=== PATIENT | female | born 1950 | race Caucasian/White ===

== ENCOUNTER 2019-01-04 23:14 | Inpatient (IN) | payer MEDICARE ==
[~2019-01-04] VITALS: Ht 170.2 cm; Wt 80.5 kg
[2019-01-04] MEDS ORDERED: normal saline 1000ML IV soln IVB ONE (23:35)
[2019-01-04] MEDS ORDERED: morphine 4 MG/ML inj SYRINge IV PRN (23:35)
[2019-01-04] MEDS ORDERED: ondansetron/PF 4mg/2ml inj IV ONE (23:35)
[2019-01-04 23:48] LABS: URINE HCG NEGATIVE (NEG)
[2019-01-04 23:50] LABS: CLARITY,URINE CLOUDY (Clear); COLOR,URINE YELLOW (Yellow); GLUCOSE, URINE NEGATIVE (Neg); KETONES,URINE TRACE mg/dl (Neg); LEUKOCYTE ESTERASE ,URINE TRACE (Neg); NITRITES, URINE NEGATIVE (Neg); OCCULT BLOOD,URINE LARGE (Neg); PH,URINE 7.5 (4.8-8.0); PROTEIN,URINE 100 mg/dl (Neg)
[2019-01-05] VITALS (9 sets, daily range): BP systolic 110–180; BP diastolic 67–100
[2019-01-05] LABS: BASOPHILS # (AUTO) 0.1 X10'3 (0-0.2); BASOPHILS % (AUTO) 0.4 % (0-1); EOSINOPHILS # (AUTO) 0.1 X10'3 (0-0.9); EOSINOPHILS % (AUTO) 0.6 % (0-6); HEMATOCRIT 43.3 % (35.0-45.0); HEMOGLOBIN 14.3 g/dl (12.0-16.0); LYMPHOCYTES # (AUTO) 1.6 X10'3 (1.1-4.8); LYMPHOCYTES % (AUTO) 11.4 % (21-51); MEAN CORPUSCULAR HEMOGLOBIN 30.4 PG (27.0-31.0); MEAN CORPUSCULAR HGB CONC 33.1 g/dL (33.0-36.5); MEAN CORPUSCULAR VOLUME 91.9 FL (78-98); MEAN PLATELET VOLUME 8.4 FL (7.4-10.4); MONOCYTES # (AUTO) 0.7 X10'3 (0-0.9); MONOCYTES % (AUTO) 5.3 % (2-12); NEUTROPHILS # (AUTO) 11.2 X10'3 (1.8-7.7); NEUTROPHILS % (AUTO) 82.3 % (42-75); PLATELET COUNT 290 X10'3 (140-440); RED BLOOD COUNT 4.71 X10'6 (4.20-5.60); RED CELL DISTRIBUTION WIDTH 13.2 % (11.5-14.5); WHITE BLOOD COUNT 13.6 X10'3 (4.5-11.0)
[2019-01-05 00:03] LABS: UA COLLECTION TYPE CLN CATCH MIDSTREAM
[2019-01-05 00:04] LABS: BACTERIA,URINE FEW /HPF (Neg); RBC,URINE 50-100 /HPF (0-2); SQUAMOUS EPITHELIAL CELL,UR FEW /LPF (FEW)
[2019-01-05 00:08] LABS: ALANINE AMINOTRANSFERASE 31 U/L (12-78); ALBUMIN 4.1 G/DL (3.4-5.0); ALBUMIN/GLOBULIN RATIO 1.1 (1.1-1.5); ALKALINE PHOSPHATASE 112 IU/L (46-116); ANION GAP 11 (8-16); ASPARTATE AMINO TRANSFERASE 22 U/L (10-37); BILIRUBIN,TOTAL 0.3 MG/DL (0.1-1.0); BLOOD UREA NITROGEN 30 MG/DL (7-18); BUN/CREATININE RATIO 21.9 (6.6-38.0); CALCIUM 10.2 MG/DL (8.5-10.1); CHLORIDE 104 MMOL/L (99-107); CREATININE 1.37 MG/DL (0.40-0.90); GLUCOSE 169 MG/DL (70-104); LIPASE 142 U/L (73-393); POTASSIUM 3.8 MMOL/L (3.5-5.1); SODIUM 139 MMOL/L (135-145); TOTAL CARBON DIOXIDE 23.7 MMOL/L (24-32); TOTAL PROTEIN 7.7 G/DL (6.4-8.2); eGFR 38 ML/MIN
[2019-01-05] MEDS ORDERED: CefTRIAXone 2gm/D5W 50ml 50 ML IV ONE (00:40)
[2019-01-05] MEDS ORDERED: ATOR40TA PO (01:03)
[2019-01-05] MEDS ORDERED: HYDROcodone/acetaminophen 10/325mg tab PO PRN (01:15)
[2019-01-05] MEDS ORDERED: magnesium hydroxide 30ml (MOM) UD suspension PO PRN (01:15)
[2019-01-05] MEDS ORDERED: mag hydrox/Alum hydrox/simeth 30ml oral suspension PO PRN (01:15)
[2019-01-05] MEDS ORDERED: ondansetron/PF 4mg/2ml inj IV PRN ×2 (01:15→08:40)
[2019-01-05] MEDS ORDERED: morphine 2 MG/ML inj. syringe IV PRN ×2 (01:15)
[2019-01-05] MEDS ORDERED: HYDROcodone/acetaminophen 5mg/325mg tablet PO PRN (01:15)
[2019-01-05] MEDS ORDERED: acetaminophen 325mg tablet PO PRN ×2 (01:15)
[2019-01-05] MEDS ORDERED: tamsulosin 0.4mg capsule PO SCH (01:20)
[2019-01-05] MEDS: normal saline 1000ml 1,000 ML IV SCH ×2 (01:25→11:15)
--- NOTE | 2019-01-05 06:30 | NUR ---
Problems reprioritized. Patient report given, questions answered & plan of care reviewed with Yane HAYDEN.
[2019-01-05] MEDS ORDERED: CefTRIAXone/D5W-Rocephin 1gm 50 ML IV SCH (08:00)
[2019-01-05] MEDS ORDERED: HYDROmorphone 2mg/ml vial IV PRN (08:05)
[2019-01-05] MEDS ORDERED: HYDROmorphone 1 mg/ml syringe IV PRN ×2 (08:16→08:20)
[2019-01-05] MEDS ORDERED: ringers solution, lacted 1,000 ML IV SCH (08:37)
[2019-01-05] MEDS ORDERED: labetalol 20mg/4ml (5mg/ml) syringe IV PRN (08:40)
[2019-01-05] MEDS ORDERED: morphine 4 MG/ML inj SYRINge IV PRN ×2 (08:40)
[2019-01-05] MEDS ORDERED: hydrALAZINE 20mg/ml inj. IV PRN (08:40)
[2019-01-05] MEDS ORDERED: fentaNYL/PF 50MCG/1 ML 2ML syringe IV PRN ×2 (08:40)
[2019-01-05] MEDS ORDERED: iohexol 300 MG/1 ML 50ml polymer ONE (08:51)
[2019-01-05] MEDS ORDERED: fentaNYL/PF 50MCG/1 ML 2ML syringe ONE (09:09)
[2019-01-05] MEDS ORDERED: dexamethasone sod phosphate 4mg/ml inj. ONE (09:09)
[2019-01-05] MEDS ORDERED: midazolam 2 mg/2 ml injection ONE (09:09)
[2019-01-05] MEDS ORDERED: propofol inj 20 ML IV ONE (09:10)
[2019-01-05] MEDS ORDERED: ondansetron/PF 4mg/2ml inj ONE (09:10)
[2019-01-05] MEDS ORDERED: LIDOcaine 1%/PF 5ML 10 MG/ML VIAL ONE (09:10)
--- NOTE | 2019-01-05 10:08 | NUR ---
PT RECEIVED IN PACU VIA BED WITH O2 ON AND DR Ford IN ATTENDANCE. REPORT RECEIVED. VS STABLE. PT SLEEPY BUT AROUSABLE, NO C/O PAIN
--- NOTE | 2019-01-05 10:38 | NUR ---
DR CORTEZ IN TO SPEAK WITH PT. V STABLE. NO PAIN
--- NOTE | 2019-01-05 10:58 | NUR ---
TO FLOOR. MARSHALL IN ROOM TO ACCEPT PT AND RECEIVE REPORT. PT COMFORTABLE AND AWAKE
[2019-01-05] MEDS ORDERED: ACET-2119 PO (13:49)
[2019-01-05] MEDS ORDERED: CIPR-230 PO (14:45)
--- NOTE | 2019-01-05 14:51 | NUR ---
PT DISCHARGED IN STABLE CONDITION. LEFT FACILITY IN PRIVATE VEHICLE WITH DAUGHTER. IV DC CANULA INTACT. ALL BELONGINGS IN HAND. FOLLOW UP INSTRUCTIONS GIVEN, ALL QUESTIONS ANSWERED. Addendum: 01/05/19 at 1454 by Carolann Sosa RN Amended: Links added.
[2019-01-05] MEDS ORDERED: non-formulary drug (Atorvastatin Calcium* (Lipitor*) 1 TABLET) PO SCH (21:00)
[2019-01-05] MEDS ORDERED: atorvastatin 20mg tablet PO SCH (21:00)
== END 2019-01-05 14:42 | disposition home or self-care (01) | DRG 661 ==
LOC: ER 23:15 → SUR 3N 01-05 01:43
PROVIDERS: ADMIT Internal Medicine; ATTEND Internal Medicine
PROC: BT1D1ZZ Fluoroscopy of Right Kidney, Ureter and Bladder using Low Osmolar Contrast (ICD-10-PCS; 2019-01-05)
PROC: 0T768DZ Dilation of Right Ureter with Intraluminal Device, Via Natural or Artificial Opening Endoscopic (ICD-10-PCS; principal; 2019-01-05 09:31)
DX: N13.6 Pyonephrosis (principal); N17.9 Acute kidney failure, unspecified; N81.10 Cystocele, unspecified; E78.5 Hyperlipidemia, unspecified
CPT/HCPCS: 36415; 74176; 80053; 81001; 81003; 81025; 83690; 85025; 85610; 87081; 87088; 96361; 96365; 96375; 99285; A4402; A4618; C1758; C1769; C2617; G0378; J0696; J1100; J1170; J2250; J2270; J2405; J2704; J3010; J7030; J7120; Q9967

== ENCOUNTER 2023-08-17 06:45 | Emergency (ER) | payer MEDICARE ==
[~2023-08-17] VITALS: Ht 170.2 cm; Wt 84.0 kg
[~2023-08-17 06:45] MED LIST: ATOR40TA PO
[2023-08-17 06:49] VITALS: BP 150/77; PULSE 66; RESP 16; TEMP 98.2; O2SAT 98
[2023-08-17] MEDS: HYDROcodone/acetaminophen 5mg/325mg tablet PO ONE (07:52)
== END 2023-08-17 08:49 | disposition home or self-care (01) ==
LOC: ER 06:45
DX: S86.911A Strain of unspecified muscle(s) and tendon(s) at lower leg level, right leg, initial encounter (principal); Z79.899 Other long term (current) drug therapy; W19.XXXA Unspecified fall, initial encounter; Y93.89 Activity, other specified; Y92.89 Other specified places as the place of occurrence of the external cause; Y99.8 Other external cause status
CPT/HCPCS: 73590; 99284; A6449